=== PATIENT | male | born 1985 | race African-American/Black ===

== ENCOUNTER 2022-07-18 09:49 | Inpatient (IN) | payer OTHER ==
[2022-07-18 10:23] VITALS: BMI 19.3
[2022-07-18] MEDS ORDERED: NICOTINE 10 MG CARTRIDGE (INHALER) IH PRN (12:09)
[2022-07-18] MEDS ORDERED: DICYCLOMINE HCL 10 MG CAPSULE PO PRN (12:09)
[2022-07-18] MEDS ORDERED: BISMUTH SUBSALICYLATE 524 MG/30 ML PO PRN (12:09)
[2022-07-18] MEDS ORDERED: IBUPROFEN 400 MG TABLET (FP) PO PRN (12:09)
[2022-07-18] MEDS ORDERED: MAG HYDROX/AL HYDROX/SIMETH 30 ML UNIT-DOSE CUP PO PRN (12:09)
[2022-07-18] MEDS ORDERED: NALOXONE HCL (KLOXXADO) 8 MG SPRAY NS PRN (12:09)
[2022-07-18] MEDS ORDERED: ACETAMINOPHEN 325 MG TABLET (FP) PO PRN ×2 (12:09)
[2022-07-18] MEDS ORDERED: BENZOCAINE/MENTHOL (CHLORASEPTIC ) LOZENGE MM PRN (12:09)
[2022-07-18] MEDS ORDERED: METHOCARBAMOL 500 MG TABLET PO PRN (12:09)
[2022-07-18] MEDS ORDERED: LORazepam 1 MG TABLET PO PRN (12:09)
[2022-07-18] MEDS ORDERED: MAGNESIUM CITRATE 300 ML BOTTLE PO PRN (12:09)
[2022-07-18] MEDS ORDERED: MAGNESIUM HYDROX 2400MG/30ML ORAL SUSPENSION 30 ML CUP PO PRN (12:09)
[2022-07-18] MEDS ORDERED: ONDANSETRON *ODT* 4 MG TABLET SL PRN (12:09)
[2022-07-18] MEDS ORDERED: LORazepam 2 MG TABLET PO ONE ×2 (12:09→17:00)
[2022-07-18] MEDS ORDERED: LOPERAMIDE HCL 2 MG CAPSULE PO PRN (12:09)
[2022-07-18] MEDS ORDERED: COLLOIDAL OATMEAL 1 BAR EACH TP PRN (12:48)
[2022-07-18] MEDS ORDERED: ALBUTEROL SO4 HFA INHALER IH PRN (12:52)
[2022-07-18] MEDS: LORazepam 2 MG TABLET PO SCH ×2 (18:00→22:37)
[2022-07-18] MEDS: BENZOYL PEROXIDE 5% 60 GM GEL..GRAM. TP SCH (18:35)
[2022-07-18 21:13] VITALS: RESP 16
[2022-07-18] MEDS ORDERED: THIAMINE HCL 100 MG TABLET (FP) PO SCH (22:00)
[2022-07-18] MEDS ORDERED: MELATONIN 5 MG TABLETS PO SCH (22:00)
[2022-07-19] MEDS: LORazepam 2 MG TABLET PO SCH ×2 (05:54→11:04)
[2022-07-19 09:29] VITALS: TEMP 97.1
[2022-07-19] MEDS ORDERED: PRENATAL VITAMINS W/ FOLIC ACID TABLET (FP) PO SCH (10:00)
[2022-07-19] MEDS: BENZOYL PEROXIDE 5% 60 GM GEL..GRAM. TP SCH (11:11)
[2022-07-19 12:24] LABS: CALCIUM 9.7 mg/dL (8.5-10.1)
[2022-07-19 12:26] LABS: HEMATOCRIT 51.4 % (35.4-49); HEMOGLOBIN 16.5 GM/dL (11.7-16.9); MCH 33.4 pg (25.7-33.7); MCHC 32.1 g/dl (32.0-35.9); PLATELET COUNT 334 10^3/uL (134-434); RBC 4.94 M/mm3 (4.00-5.60); RDW 14.5 % (11.9-15.9); WHITE BLOOD COUNT 8.5 K/mm3 (4.0-10.0)
[2022-07-19 12:30] LABS: TOT PROT 7.9 g/dl (6.4-8.2)
[2022-07-19 12:31] LABS: BILIRUBIN,TOTAL 0.9 mg/dL (0.2-1)
[2022-07-19 13:22] VITALS: BP 132/81; PULSE 81
[2022-07-20] MEDS ORDERED: LORazepam 1 MG TABLET PO SCH (05:00)
[2022-07-21] MEDS ORDERED: LORazepam 0.5 MG TABLET PO PRN
[2022-07-21] MEDS ORDERED: LORazepam 0.5 MG TABLET PO SCH (05:00)
[2022-07-22] MEDS ORDERED: LORazepam 0.5 MG TABLET PO ONE (05:00)
== END 2022-07-19 15:10 | disposition left against medical advice (07) | DRG 894 ==
LOC: YASAS 09:49 → Y3N 12:39
PROVIDERS: ADMIT Allergy & Immunology; ATTEND Surgery
PROC: HZ2ZZZZ Detoxification Services for Substance Abuse Treatment (ICD-10-PCS; principal; 2022-07-18)
DX: F10.230 Alcohol dependence with withdrawal, uncomplicated (principal); F17.290 Nicotine dependence, other tobacco product, uncomplicated; L73.8 Other specified follicular disorders; Z87.09 Personal history of other diseases of the respiratory system
CPT/HCPCS: 36415; 80053; 85027; 86780; 87811; C9803-CS; U0003; U0005